=== PATIENT | female | born 1990 | race Caucasian/White ===

== ENCOUNTER 2019-07-16 13:03 | Emergency (ER) | payer OTHER ==
[2019-07-16] MEDS ORDERED: SODIUM CHLORIDE 0.9% 1,000 ML IV ONE ×2 (14:03→14:37)
--- NOTE | 2019-07-16 14:09 | ED Physician Documentation ---
PD HPI NVD - Stated complaint Stated Complaint: NAUSEA,VOMITING,DIZZINESS - Chief complaint Chief Complaint: Abd Pain - History obtained from History obtained from: Patient - History of Present Illness Timing - onset: How many weeks ago (past 2-3 weeks with N/V episodically through the day. More consistent nausea the past week, with vomiting of any PO intake the past 2-3 days. She is at 9 weeks with normal U/S done 3 weeks ago showing single IUP.) Timing - duration: Weeks (for some nausea, soon after discovered .) Timing - details: Gradual onset, Still present Associated symptoms: Abdominal pain (epigastric area with eating attempts and with vomiting.), Loss of appetite, Weight loss. No: Fever, Hematemesis, Melena, Near syncope / syncope (but feeling lightheaded the past couple days.), Dysuria Contributing factors: Recent antibiotics (flagyl the past 6 days for BV diagnosed by [facility] on regular exam.). No: Sick contact, Bad food Improved by: No: Eating, Vomiting Worsened by: Eating. No: Moving Similar symptoms before: Has not had sx before Recently seen: Clinic (seen by [facility] about 1 1/2 weeks ago, and also couple weeks prior to that.) Review of Systems Constitutional: reports: Fatigue, Weight Loss. denies: Fever, Chills, Myalgias Nose: denies: Rhinorrhea / runny nose, Congestion Throat: denies: Sore throat Respiratory: denies: Cough GI: reports: Abdominal Pain, Nausea, Vomiting. denies: Abdominal Swelling, Constipation, Diarrhea : reports: Now EGA (9 wks). denies: Dysuria, Frequency, Vaginal bleeding Neurologic: reports: Generalized weakness, Headache. denies: Focal weakness, Numbness, Altered mental status Endocrine: reports: Weight loss. denies: Polydypsia, Polyphagia Immunocompromised: denies: Immunocompromised PD PAST MEDICAL HISTORY - Past Medical History Past Medical History: No - Present Medications Home Medications: Ambulatory Orders Medication Instructions Recorded Confirmed Cephalexin [Keflex] 500 mg PO TID #15 capsule 07/16/19 Famotidine 20 mg PO DAILY #30 tablet 07/16/19 Ondansetron Odt [Zofran] 4 mg TL Q6H PRN #30 tablet 07/16/19 Pyridoxine HCl (Vitamin B6) 100 mg PO BID #30 tablet 07/16/19 [Vitamin B-6] - Allergies Allergies/Adverse Reactions: Allergies Allergy/AdvReac Type Severity Reaction Status Date / Time No Known Drug Allergies Allergy Verified 07/16/19 14:29 PD ED PE NORMAL - Vitals Vital signs reviewed: Yes - General General: Alert and oriented X 3, Well developed/nourished - HEENT HEENT: Ears normal, Pharynx benign. No: Moist mucous membranes - Neck Neck: Supple, no meningeal sign, No adenopathy - Cardiac Cardiac: No murmur. No: RRR (regular but tachycardic) - Respiratory Respiratory: Clear bilaterally - Abdomen Abdomen: Normal bowel sounds, Soft, Non distended, No organomegaly, Other (some tender epigastric area without guarding nor percussion tender. ) - Back Back: No CVA TTP - Derm Derm: Normal color, Warm and dry - Extremities Extremities: No edema, No calf tenderness / cord - Neuro Neuro: Alert and oriented X 3, No motor deficit, Normal speech Results - Vitals Vitals: Vital Signs - 24 hr 07/16/19 07/16/19 07/16/19 13:18 15:24 16:33 Temperature 36.8 C 36.7 C 37.1 C Heart Rate 109 H 80 96 Respiratory 16 16 16 Rate Blood Pressure 113/70 114/73 114/69 O2 Saturation 98 99 100 Oxygen O2 Source Room air - Labs Labs: Laboratory Tests 07/16/19 07/16/19 07/16/19 14:10 14:10 15:19 Sodium 133 L Potassium 3.3 L Chloride 102 Carbon Dioxide 23 Anion Gap 8.0 BUN 8 Creatinine 0.5 Estimated GFR (MDRD) 149 Glucose 109 H Calcium 8.7 Magnesium 2.0 Total Bilirubin 0.8 AST 16 ALT 12 Alkaline Phosphatase 35 L Total Protein 6.9 Albumin 4.0 Globulin 2.9 Albumin/Globulin Ratio 1.4 Lipase 35 Urine Color YELLOW Urine Clarity HAZY Urine pH 5.5 Ur Specific [place] >=1.030 H Urine Protein NEGATIVE Urine Glucose (UA) NEGATIVE Urine Ketones TRACE Urine Occult Blood NEGATIVE Urine Nitrite POSITIVE H Urine Bilirubin NEGATIVE Urine Urobilinogen 0.2 (NORMAL) Ur Leukocyte Esterase SMALL H Urine RBC 0-5 Urine WBC 6-10 H Ur Squamous Epith Cells MANY Squamous H Urine Crystals 6-10 Calcium Oxalate Urine Bacteria Moderate H Urine Mucus Few Strands Ur Microscopic Review INDICATED Urine Culture Comments NOT INDICATED PD MEDICAL DECISION MAKING - ED course Complexity details: reviewed results (UA could be c/w UTI. She had recent U/S showing single IUP and no acute process. ), re-evaluated patient (improved symptoms with IV fluids and meds. Taking PO juice and crackers. ), considered differential (consider hyperemesis in , also some element of gastritis from vomiting. Had been on flagyl for BV so med side effect. Less likely stomach side effect of vitamins. Also consider UTI, viral GE. ), d/w patient Departure - Departure Disposition: Home, Self Care Clinical Impression: Nausea and vomiting Qualifiers: Vomiting type: unspecified Vomiting Intractability: intractable Qualified Code(s): R11.2 - Nausea with vomiting, unspecified Condition: Stable Record reviewed to determine appropriate education?: Yes Instructions: ED Preg Morning Sickness, ED Nausea Vomiting Follow-Up: Ryan Packer ARNP [Primary Care Provider] - Prescriptions: Cephalexin [Keflex] 500 mg PO TID #15 capsule Famotidine 20 mg PO DAILY #30 tablet Ondansetron Odt [Zofran] 4 mg TL Q6H PRN #30 tablet PRN Reason: Nausea / Vomiting Pyridoxine HCl (Vitamin B6) [Vitamin B-6] 100 mg PO BID #30 tablet Comments: Small frequent fluids. Ondansetron if needed for nausea and vomiting. Famotidine acid reducing medicine daily for the next week or 2 as your stomach would have gotten irritated with all the vomiting and this will allow better healing. Vitamin B6 twice daily reduces the amount of nausea in in general. Hold your vitamin for a couple of days as the iron in it sometimes can be bothersome on the stomach. Resume it when your stomach is feeling much improved. There is suggestive of bladder infection on your urine test so take cephalexin 3 times a day for 5 days. The urine culture should result in 2 to 3 days and help guide the antibiotic choice. We will call if it needs to be changed. Follow-up with your primary care and [facility] over the next several days. Return if worse. Discharge Date/Time: 07/16/19 16:34
[2019-07-16 14:32] LABS: ALBUMIN/GLOBULIN RATIO 1.4 (1.0-2.2); BILIRUBIN,TOTAL 0.8 mg/dL (0.2-1.0); CALCIUM 8.7 mg/dL (8.5-10.3); CREATININE 0.5 mg/dL (0.4-1.0); TOTAL PROTEIN 6.9 g/dL (6.7-8.2)
[2019-07-16] MEDS ORDERED: ONDANSETRON 4 MG/2 ML VIAL IVP STA (14:37)
[2019-07-16] MEDS ORDERED: DEXAMETHASONE 10 MG/ML VIAL IVP STA (14:38)
[2019-07-16] MEDS ORDERED: FAMOTIDINE 20 MG/2 ML VIAL IVP STA (14:38)
[2019-07-16 15:28] LABS: BILIRUBIN,URINE NEGATIVE (NEGATIVE); GLUCOSE, URINE (UA) NEGATIVE (NEGATIVE); KETONES,URINE (UA) TRACE mg/dL (NEGATIVE); LEUKOCYTE ESTERASE, URINE SMALL (NEGATIVE); NITRITE,URINE POSITIVE (NEGATIVE); OCCULT BLOOD,URINE NEGATIVE (NEGATIVE); PH,URINE 5.5 PH (5.0-7.5); PROTEIN,URINE NEGATIVE (NEGATIVE); UROBILINOGEN,URINE 0.2 (NORMAL) E.U./dL (NORMAL)
[2019-07-16 15:30] LABS: CLARITY,URINE HAZY (CLEAR)
[2019-07-16 15:43] LABS: BACTERIA,URINE Moderate /HPF (None Seen); CRYSTALS,URINE 6-10 Calcium Oxalate /LPF; MUCUS,URINE Few Strands; RBC,URINE 0-5 /HPF (0-5); SQUAMOUS EPITHELIAL CELL,UR MANY Squamous (<= Few)
[2019-07-16] MEDS ORDERED: cefTRIAXone 1 GM VIAL IVP STA (15:48)
[2019-07-16 16:34] VITALS: BP 114/69
== END 2019-07-16 16:34 | disposition home or self-care (01) ==
LOC: ED 13:03
DX: O21.0 Mild hyperemesis gravidarum (principal); Z3A.09 9 weeks gestation of pregnancy
CPT/HCPCS: 36415; 80053; 81001; 81003; 83690; 83735; 87086; 96361; 96374; 96375; 99284

== ENCOUNTER 2019-08-27 11:38 | Emergency (ER) | payer OTHER ==
[2019-08-27] MEDS: SODIUM CHLORIDE 0.9% 1,000 ML IV ONE (13:20)
[2019-08-27 13:27] LABS: BILIRUBIN,URINE NEGATIVE (NEGATIVE); GLUCOSE, URINE (UA) NEGATIVE (NEGATIVE); KETONES,URINE (UA) >=80 mg/dL (NEGATIVE); LEUKOCYTE ESTERASE, URINE NEGATIVE (NEGATIVE); NITRITE,URINE NEGATIVE (NEGATIVE); OCCULT BLOOD,URINE NEGATIVE (NEGATIVE); PROTEIN,URINE NEGATIVE (NEGATIVE); UROBILINOGEN,URINE 0.2 (NORMAL) E.U./dL (NORMAL)
[2019-08-27 13:29] LABS: CLARITY,URINE CLEAR (CLEAR)
[2019-08-27 13:44] LABS: KETONES, SERUM (ACETEST) NEGATIVE (NEGATIVE)
[2019-08-27 13:48] LABS: ALBUMIN 4.1 g/dL (3.2-5.5); ALBUMIN/GLOBULIN RATIO 1.4 (1.0-2.2); ALKALINE PHOSPHATASE 38 IU/L (42-121); ALT ALANINE AMINOTRANSFERASE 15 IU/L (10-60); AST ASPARTATE AMINOTRANSFERASE 18 IU/L (10-42); BILIRUBIN,TOTAL 1.4 mg/dL (0.2-1.0); BUN - BLOOD UREA NITROGEN 7 mg/dL (6-20); CALCIUM 8.8 mg/dL (8.5-10.3); CARBON DIOXIDE - CO2 24 mmol/L (21-32); CHLORIDE 99 mmol/L (101-111); CREATININE 0.5 mg/dL (0.4-1.0); GLUCOSE 77 mg/dL (70-100); LIPASE 30 U/L (22-51); SODIUM 134 mmol/L (135-145)
--- NOTE | 2019-08-27 14:04 | ED Physician Documentation ---
PD HPI NVD - Stated complaint Stated Complaint: VOMITING - Chief complaint Chief Complaint: General - History obtained from History obtained from: Patient - History of Present Illness Timing - onset: Yesterday Timing - duration: Days (1) Timing - details: Gradual onset, Still present Associated symptoms: Abdominal pain Contributing factors: Other () Improved by: Vomiting Similar symptoms before: Diagnosis (hyperemesis) Recently seen: Clinic - Additonal information Additional information: 28-year-old female who is approximately 15 weeks has developed nausea and vomiting beginning yesterday that she has not been able to control with the use of the Zofran or doxylamine and pyridoxine.She is come in now with 1 days of uncontrolled vomiting. She feels dehydrated. She is getting her care through [facility]. Review of Systems Constitutional: denies: Fever Eyes: denies: Decreased vision Ears: denies: Ear pain Nose: denies: Rhinorrhea / runny nose, Congestion Throat: denies: Sore throat Cardiac: denies: Chest pain / pressure, Palpitations Respiratory: denies: Dyspnea, Cough GI: reports: Abdominal Pain, Nausea, Vomiting : denies: Dysuria, Frequency Skin: denies: Rash Musculoskeletal: denies: Neck pain, Back pain, Extremity pain Neurologic: denies: Generalized weakness, Focal weakness, Numbness PD PAST MEDICAL HISTORY - Past Medical History Cardiovascular: None Respiratory: None Neuro: None Endocrine/Autoimmune: None GI: None NATIONAL SALES ASSOCIATE: None : None HEENT: None Psych: Depression, Anxiety Musculoskeletal: None Derm: None - Past Surgical History Past Surgical History: Yes General: Appendectomy - Present Medications Home Medications: Ambulatory Orders Medication Instructions Recorded Confirmed Ondansetron Odt [Zofran] 4 mg TL Q6H PRN #30 tablet 07/16/19 08/27/19 Doxylamine Succinate [Unisom] 25 mg PO TID 08/27/19 08/27/19 No122/Iron/Folic Acid 1 each PO DAILY PM 08/27/19 08/27/19 [ Multi Tablet] Pyridoxine HCl (Vitamin B6) 100 mg PO TID 08/27/19 08/27/19 [Vitamin B-6] - Allergies Allergies/Adverse Reactions: Allergies Allergy/AdvReac Type Severity Reaction Status Date / Time No Known Drug Allergies Allergy Verified 07/16/19 14:29 - Social History Does the pt smoke?: No Smoking Status: Never smoker Does the pt drink ETOH?: No Does the pt have substance abuse?: No - Immunizations Immunizations are current?: Yes - POLST Patient has POLST: No PD ED PE NORMAL - Vitals Vital signs reviewed: Yes (tachy ) - General General: Alert and oriented X 3, No acute distress, Well developed/nourished - HEENT HEENT: Atraumatic, PERRL, EOMI - Neck Neck: Supple, no meningeal sign, No bony TTP - Cardiac Cardiac: RRR, No murmur - Respiratory Respiratory: No respiratory distress, Clear bilaterally - Abdomen Abdomen: Normal bowel sounds, Soft, Non tender, Non distended, No organomegaly - Back Back: No CVA TTP, No spinal TTP - Derm Derm: Normal color, Warm and dry, No rash - Extremities Extremities: No deformity, No edema, No calf tenderness / cord - Neuro Neuro: Alert and oriented X 3, central service technician 2-12 intact, No motor deficit, No sensory deficit, Normal speech Eye Opening: Spontaneous Motor: Obeys Commands Verbal: Oriented GCS Score: 15 - Psych Psych: Normal mood, Normal affect Results - Vitals Vitals: Vital Signs - 24 hr 08/27/19 08/27/19 12:02 12:29 Temperature 37 C 36.9 C Heart Rate 112 H 104 H Respiratory 20 20 Rate Blood Pressure 111/70 101/61 O2 Saturation 98 99 Oxygen O2 Source Room air - Labs Labs: Laboratory Tests 08/27/19 08/27/19 13:05 13:15 Sodium 134 L Potassium 3.7 Chloride 99 L Carbon Dioxide 24 Anion Gap 11.0 BUN 7 Creatinine 0.5 Estimated GFR (MDRD) 149 Glucose 77 Calcium 8.8 Total Bilirubin 1.4 H AST 18 ALT 15 Alkaline Phosphatase 38 L Total Protein 7.0 Albumin 4.1 Globulin 2.9 Albumin/Globulin Ratio 1.4 Lipase 30 Urine Color YELLOW Urine Clarity CLEAR Urine pH 7.0 Ur Specific [place] 1.020 Urine Protein NEGATIVE Urine Glucose (UA) NEGATIVE Urine Ketones >=80 H Urine Occult Blood NEGATIVE Urine Nitrite NEGATIVE Urine Bilirubin NEGATIVE Urine Urobilinogen 0.2 (NORMAL) Ur Leukocyte Esterase NEGATIVE Ur Microscopic Review NOT INDICATED Urine Culture Comments NOT INDICATED Serum Ketones NEGATIVE Procedures - Bedside sono Bedside sono by EMP: With the use of bedside ultrasound the fetus is imaged and it is moving about, has a heart rate of 156 and a biparietal diameter indicating a gestational age of 14 weeks 6 days. - IVC sono (time) 1350 Bedside IVC sono: IVC measures (cm) (1.8), Euvolemia (after 1 liter is in) PD MEDICAL DECISION MAKING - ED course Complexity details: reviewed old records, reviewed results, re-evaluated patient, considered differential, d/w patient ED course: 28-year-old female who has had some problems with hyperemesis has developed some vomiting today and she did not get relief with the use of the Ticlid just for the Zofran. She is hydrated here in the emergency department and has improvement in all of her symptoms. Departure - Departure Disposition: 01 Home, Self Care Clinical Impression: Nausea and vomiting Qualifiers: Vomiting type: unspecified Vomiting Intractability: non-intractable Qualified Code(s): R11.2 - Nausea with vomiting, unspecified Condition: Stable Instructions: ED Preg Morning Sickness Follow-Up: Ryan Packer ARNP [Primary Care Provider] -
[2019-08-27 14:22] VITALS: BP 114/70
== END 2019-08-27 14:30 | disposition home or self-care (01) ==
LOC: ED 11:38
DX: O21.9 Vomiting of pregnancy, unspecified (principal); Z3A.15 15 weeks gestation of pregnancy
CPT/HCPCS: 36415; 80053; 81001; 81003; 82009; 83690; 87086; 96360; 99284

== ENCOUNTER 2019-11-01 18:48 | Outpatient (CLI) | payer OTHER ==
[2019-11-01 19:18] VITALS: BP 111/77
[2019-11-01 20:40] LABS: BILIRUBIN,URINE NEGATIVE (NEGATIVE); CLARITY,URINE CLEAR (CLEAR); GLUCOSE, URINE (UA) NEGATIVE (NEGATIVE); KETONES,URINE (UA) NEGATIVE (NEGATIVE); LEUKOCYTE ESTERASE, URINE NEGATIVE (NEGATIVE); NITRITE,URINE NEGATIVE (NEGATIVE); OCCULT BLOOD,URINE NEGATIVE (NEGATIVE); PH,URINE 6.5 PH (5.0-7.5); PROTEIN,URINE NEGATIVE (NEGATIVE); UROBILINOGEN,URINE 0.2 (NORMAL) E.U./dL (NORMAL)
--- NOTE | 2019-11-01 20:57 | HISTORY & PHYSICAL EXAMINATION ---
DATE OF SERVICE: 11/01/2019 Physician: Truman Prater MD IDENTIFICATION: A 29-year-old, G1, P0 female, EDC 19 February, making her 24 weeks. This is done his torical from patient, as patient's OB records are not available and are currently at [facility]. CHIEF COMPLAINT 1. Decreased motion. 2. Contractions. HISTORY OF PRESENT ILLNESS: Patient called the clinic yesterday, at which time she was noted to have decreased motion. She states she has not noted any activity over the last 2 days. She was told to push fluids, increase carbohydrates and to monitor her contractions. She has not noted a ny contractions since then. She has also noted some mild contractions at this particular time. This has been complicated with severe hyperemesis gravidum with a 25-pound weight loss. She re lates that her blood type is B positive. She also notes that her STI check was negative. She has al so had screening for chromosomal abnormalities, as well as cystic fibrosis both of which she recalls as being negative. PAST MEDICAL HISTORY: Patient denies any hypertensive, diabetic, cardiac or pulmonary disease. PAST SURGICAL HISTORY: Positive for an appendectomy as well as a hymenectomy. ALLERGIES: NONE KNOWN. CURRENT MEDICATIONS: vitamins. HABITS: Patient denies use of alcohol, tobacco, street or addictive drugs or cannabinoids. 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 She is to an active duty [employer]. FAMILY HISTORY: Unremarkable. REVIEW OF SYSTEMS: Negative at this time. She states her hyperemesis is mostly resolved. PHYSICAL EXAMINATION VITAL SIGNS: Blood pressure 111/77, pulse 105, temperature 36.8. HEENT: Pupils are equal, round. Extraocular muscles are intact. Mask is over her mouth. Thyroid i s not palpably enlarged. HEART: Regular rate and rhythm without murmurs. LUNGS: Lung monsalve are clear without rales or wheezes. BACK: No spinal or CVA tenderness noted. ABDOMEN: Uterus measured 25 cm in fundal height. It was nontender. We were able to auscultate feta l heart tones, as well as hear what appears to be motion. PELVIC: Speculum examination revealed a cervix with minimal vaginal discharge. Cultures for bacteri al vaginosis as well as an FFN were taken. Wet mount was also obtained. IMPRESSION: 1. A 29-year-old primigravida at 24 weeks. 2. Decreased motion. 3. New onset contractions. PLAN: Patient's contractions are sporadic and nonpainful at this particular time, they are running a bout 7-8 minutes apart. We will obtain ultrasound, checking cervical length. FFN has been obtained. She has not had any intercourse or any vaginal penetration for the last week. We will also send in for a bacterial vaginosis as well as clue cells and hyphae. Patient has been instructed she is not to return to work until Tuesday until she has clearance from the doctors at [facility] TD: 11/01/2019 20:46
[2019-11-01 20:59] LABS: RBC,URINE None Seen /HPF (0-5)
[2019-11-01 21:00] LABS: BACTERIA,URINE None Seen /HPF (None Seen); SQUAMOUS EPITHELIAL CELL,UR MOD Squamous (<= Few)
[2019-11-02 06:17] LABS: CANDIDA GROUP DNA UNRESOLVED (NEGATIVE); CANDIDA KRUSEI DNA UNRESOLVED (NEGATIVE); TRICHOMONAS VAGINALIS DNA UNRESOLVED (NEGATIVE)
--- NOTE | 2019-11-02 15:48 | Ultrasound Report ---
PROCEDURE: 4.8 INDICATIONS: Non movement x 24hrs, uterine contractions OUTSIDE/PRIOR DATING DATA: Last menstrual period (LMP): 05/15/2019. LMP-based estimated date of delivery (CELSA): 02/20/2020. First dating scan (date and location): 11/01/2019. Estimated date of delivery (CELSA) from first dating scan: 02/20/2020. TECHNIQUE: Real-time scanning was performed of the fetus, with image documentation and biometric bryan surements. Biophysical profile was also obtained. COMPARISON: None. FINDINGS: General: A single living intrauterine gestation is present. Presentation: Vertex Placenta: Placental position is posterior, without previa. Amniotic fluid index: 18.7 cm, 82nd percentile for gestational age. Largest pocket 5.7 cm heart rate: 144 beats per minute. Maternal cervical canal: 40 cm long; normal length is 2.5 cm or more. biometrics: Not obtained. Biophysical profile: Tone: 2 points. Movement: 2 points. Respiration: 2 points. Largest pocket of fluid: 2 points. Umbilical artery Doppler: 4.8, 4.8, 2.8 IMPRESSION: 1. Single live intrauterine . Prior dating data is noted to been obtained from the patient a s prior records were not available at time of emergency room visit. They have been requested and adde ndum will be issued as they are received for verification. 2. BPP 8 out of 8. Reviewed by: Karolyn Lyons MD on 11/02/2019 3:47 PM PDT Approved by: Karolyn Lyons MD on 11/02/2019 3:47 PM PDT Station ID: [id number]
== END 2019-11-01 21:50 | disposition home or self-care (01) ==
LOC: WFO 18:48 → FBP 18:52 → WFO 21:50
PROVIDERS: ATTEND Obstetrics & Gynecology
DX: O36.8120 Decreased fetal movements, second trimester, not applicable or unspecified (principal); O60.02 Preterm labor without delivery, second trimester; Z3A.24 24 weeks gestation of pregnancy
CPT/HCPCS: 76819; 81001; 82731; 87086; 87210; 87661; 87801; 99214

== ENCOUNTER 2019-12-31 17:01 | Outpatient (CLI) | payer OTHER ==
--- NOTE | 2019-12-31 18:53 | Ultrasound Report ---
PROCEDURE: OB Limited INDICATIONS: Fall with impact to the abd. Check for abruption OUTSIDE/PRIOR DATING DATA: Last menstrual period (LMP): 05/15/2019. LMP-based estimated date of delivery (CELSA): 02/20/2020. First dating scan (date and location): Unknown. Prior scan at [facility]. Estimated date of delivery (CELSA) from first dating scan: 02/20/2020. TECHNIQUE: Real-time scanning was performed of the fetus, with image documentation. Endovaginal scanning: Not performed. COMPARISON: OB ultrasound 11/01/2019. FINDINGS: A single living intrauterine gestation is present. Presentation: Vertex Placenta: Placental position is posterior, without previa. No placental abruption. Amniotic fluid index: 15.2 cm, normal for gestational age. Largest pocket 6.2 cm. heart rate: 144 beats per minutes. Maternal cervical canal: 4.7 cm long; normal length is 2.5 cm or more. No funneling. Estimated gestational age from prior scan: 32 weeks 5 days. Breathing motion is seen. Right ovary is unremarkable. Left ovary is not identified. IMPRESSION: 1. Oleary living intrauterine at 32 weeks 5 days based on prior ultrasound. Fetus is in the vertex position. 2. Normal placenta and amniotic fluid. No findings identified to suggest placental abruption. 3. heart rate 144 BPM. Breathing motion is seen. Reviewed by: Fareed Sosa MD on 12/31/2019 6:52 PM PDT Approved by: Fareed Sosa MD on 12/31/2019 6:52 PM PDT Station ID: [id number]
--- NOTE | 2019-12-31 19:29 | HISTORY & PHYSICAL EXAMINATION ---
DATE OF SERVICE: 12/31/2019 Physician: Truman Prater MD IDENTIFICATION: Patient is a 29-year-old, G1, P0 female. Her EDC is February, making her 32.71 w eeks. CHIEF COMPLAINT: Fall. HISTORY OF PRESENT ILLNESS: Patient states she was going up the stairs at about 4 o'clock today at w hich time she tripped and landed on her stomach. She denies any bleeding. She denied passing out. She states the baby has been moving well since then. She was checked for blood type she is B positiv e. OBSTETRICAL HISTORY: She started her OB care at [facility] early in her and she relates that her course has been unremarkable. Her STI checks have been negative. She is B positive. Her 50 gram Glucola was 132. PAST MEDICAL HISTORY: Patient denies any hypertensive, diabetic, cardiac or pulmonary history. PAST SURGICAL HISTORY: Hymenectomy, open appendectomy with rupture, as well as wisdom teeth. ALLERGIES: NONE KNOWN. CURRENT MEDICATIONS: vitamins. HABITS: Patient denies use of alcohol, tobacco, street or addictive drugs or marijuana. SOCIAL HISTORY: Patient is and lives with active duty [employer] spouse. He is currently deployed . She works for the [employer] at this time. FAMILY HISTORY: Positive for mother with ovarian cancer, DVT. Father, coronary artery disease. Her mother also had gestational diabetes. PHYSICAL EXAMINATION GENERAL: Patient is well-developed, well-nourished white female. She is in no acute distress at thi s time. HEENT: Pupils equal, round. Extraocular muscles are intact. CARDIOVASCULAR: Regular rate and rhythm without murmurs. LUNGS: Lung monsalve are clear without rales or wheezes. ABDOMEN: Soft, nontender. There is some mild tenderness in the right upper quadrant over the gallbl adder. Upon reviewing the ultrasound with the laser beam cutter she received 8/8 for BPP. She also w as noted to have a placenta, which is posterior. The DEVEN was 15. There are no other anomalies or ev idence of any abruption at this time. The cervix is long and closed. IMPRESSION 1. A 29-year-old primigravida at 32 weeks EGA. 2. Fall on the abdomen with posterior placenta. PLAN: No evidence of any disease. The patient is Rh positive. We will monitor for 12 hours, at [facility] time if everything is reassuring, we will allow the patient to go home. TD: 12/31/2019 18:47
[2019-12-31 21:35] VITALS: BP 110/78
== END 2019-12-31 21:10 | disposition home or self-care (01) ==
LOC: WFO 17:01 → FBP 17:03 → WFO 21:10
PROVIDERS: ATTEND Obstetrics & Gynecology
DX: Z04.3 Encounter for examination and observation following other accident (principal); Z3A.32 32 weeks gestation of pregnancy
CPT/HCPCS: 76815; 99213

== ENCOUNTER 2020-01-16 12:18 | Outpatient (CLI) | payer OTHER ==
[2020-01-16 13:14] LABS: ALBUMIN 3.3 g/dL (3.2-5.5); ALBUMIN/GLOBULIN RATIO 1.1 (1.0-2.2); BILIRUBIN,TOTAL 0.7 mg/dL (0.2-1.0); CALCIUM 8.2 mg/dL (8.5-10.3); CREATININE 0.4 mg/dL (0.4-1.0); TOTAL PROTEIN 6.3 g/dL (6.7-8.2)
== END 2020-01-16 12:19 | disposition home or self-care (01) ==
LOC: LAB 12:18
PROVIDERS: ATTEND Advanced Practice Midwife
DX: L29.9 Pruritus, unspecified (principal)
CPT/HCPCS: 36415; 80053

== ENCOUNTER 2020-01-17 07:31 | Outpatient (CLI) | payer OTHER | END 2020-01-17 07:32 | disposition home or self-care (01) | LOC: LAB 07:31 | PROVIDERS: ATTEND Advanced Practice Midwife | DX: L29.9 Pruritus, unspecified (principal) | CPT/HCPCS: 36415; 82239 ==

== ENCOUNTER 2020-01-23 07:00 | Outpatient (CLI) | payer OTHER | END 2020-01-23 23:59 | disposition home or self-care (01) | LOC: LAB.R 07:00 | PROVIDERS: ATTEND Nurse Practitioner Obstetrics & Gynecology | DX: Z36.85 Encounter for antenatal screening for Streptococcus B (principal) | CPT/HCPCS: 87797 ==

== ENCOUNTER 2020-02-01 13:36 | Outpatient (CLI) | payer OTHER ==
--- NOTE | 2020-02-01 16:45 | Ultrasound Report ---
PROCEDURE: OB F/U or Repeat INDICATIONS: UTERINE SIZE DISCREPANCY, 3RD TRIMESTER OUTSIDE/PRIOR DATING DATA: Last menstrual period (LMP): 05/15/2019. LMP-based estimated date of delivery (CELSA): 02/20/2020. First dating scan (date and location): Reported prior scan at [facility]. Estimated date of delivery (CELSA) from first dating scan: 02/20/2020. TECHNIQUE: Real-time scanning was performed of the fetus, with image documentation and biometric measurements. Endovaginal scanning: Not performed COMPARISON: Ultrasound dated 11/01/2019 and 12/31/2019. FINDINGS: General: A single living intrauterine gestation is present. Presentation: Vertex Placenta: Placental position is posterior, without previa. Amniotic fluid index: 12.9 cm, 44th percentile for gestational age. Largest pocket 6.9 cm. heart rate: 139 beats per minute. Maternal cervical canal: 4.5 cm long; normal length is 2.5 cm or more. biometrics: Biparietal diameter: 8.8 cm, 35 weeks 5 days Head circumference: 32.6 cm, 37 weeks 0 days Abdominal circumference: 30.9 cm, 34 weeks 6 days Femur length: 6.6 and a minute, 34 weeks 2 days Estimated gestational age from initial scan: 37 weeks 2 days. Composite gestational age from present scan: 35 weeks 3 days Estimated weight and percentile: 2563 g, 9th percentile Measurement variability in biometric dating: +/- 10 days from 12-20 weeks gestation, +/- 2 weeks from 20-30 weeks gestation, +/- 3 weeks at 30 weeks gestation or more. Other: Umbilical artery SD ratios measure 2.5, 2.3, 2.9, within normal limits. IMPRESSION: Single living intrauterine fetus in vertex presentation. Estimated weight 2563 g, at the 9th percentile. Normal DEVEN and cord Doppler examination. Reviewed by: Reji Jones MD on 02/01/2020 4:44 PM PDT Approved by: Reji Jones MD on 02/01/2020 4:44 PM PDT Station ID: [id number]
== END 2020-02-01 13:37 | disposition home or self-care (01) ==
LOC: DI 13:36
PROVIDERS: ATTEND Nurse Practitioner Obstetrics & Gynecology
DX: O26.843 Uterine size-date discrepancy, third trimester (principal); Z3A.35 35 weeks gestation of pregnancy
CPT/HCPCS: 76816

== ENCOUNTER 2020-02-07 09:10 | Outpatient (CLI) | payer OTHER ==
--- NOTE | 2020-02-07 11:20 | Ultrasound Report ---
PROCEDURE: OB Biophysical Profile INDICATIONS: IUGR OUTSIDE/PRIOR DATING DATA: Last menstrual period (LMP): 05/25/2019. LMP-based estimated date of delivery (CELSA): 02/20/2020. First dating scan (date and location): 10/02/2019. Estimated date of delivery (CELSA) from first dating scan: 02/20/2020. TECHNIQUE: Real-time scanning was performed of the fetus, with image documentation and biometric bryan surements. Biophysical profile was also obtained. COMPARISON: OB ultrasound , , 12/31/2019, 02/01/2020 FINDINGS: General: A single living intrauterine gestation is present. Presentation: Vertex spine lateral Placenta: Placental position is posterior, without previa. Amniotic fluid index: 12.9 cm, 44th percentile for gestational age. Largest pocket 6.9 cm heart rate: 139 beats per minute. Maternal cervical canal: 4.5 cm long; normal length is 2.5 cm or more. biometrics: Biparietal diameter: 8.8 cm 35 weeks 5 days Head circumference: 32.6 cm 37 weeks 0 days Abdominal circumference: 30.9 cm 34 weeks 6 days Femur length: 6.6 cm 34 weeks 2 days Estimated gestational age from initial scan: 37 weeks 2 days Composite gestational age from present scan: 35 weeks 3 days Estimated weight and percentile: 25 63 g, 9th percentile Measurement variability in biometric dating: +/- 10 days from 12-20 weeks gestation, +/- 2 weeks from 20-30 weeks gestation, +/- 3 weeks at 30 weeks gestation or later. Umbilical artery systolic to diastolic ratio: 2.5, 2.3, 2.9 IMPRESSION: 1. Single live intrauterine with ultrasound gestational age today 35 weeks 3 days compared to 37 weeks 2 days from initial ultrasound. Ultrasound CELSA is unchanged at 02/20/2020. 2. weight remains at the 9th percentile. Reviewed by: Karolyn Lyons MD on 02/07/2020 11:19 AM PDT Approved by: Karolyn Lyons MD on 02/07/2020 11:19 AM PDT Station ID: [id number]
[2020-02-07 13:25] VITALS: BP 105/77
--- NOTE | 2020-02-07 15:31 | PROCEDURE REPORT ---
- HPI Diagnosis/Indication for NST: Intrauterine growth restriction Current EDU 02/20/20 Gestation 38 Weeks and 1 Days 1 Para 0 Vital Signs Temperature 36.8 C 02/07/20 10:15 Heart Rate 99 02/07/20 10:15 Respiratory Rate 18 02/07/20 10:15 Blood Pressure 105/77 02/07/20 10:15 Temperature 36.8 C 02/07/20 10:15 Heart Rate 99 02/07/20 10:15 Respiratory Rate 18 02/07/20 10:15 Blood Pressure 105/77 02/07/20 10:15 O2 Saturation - NST Procedure NST Procedure Start Date 02/07/20 Start Time 09:22 Stop Time 10:06 Patient States Movement Yes - Results and Plan Plan: NST performed: 02/07/2020 NST read: 02/07/2020 Indication: IUGR (low weight) 29yo at 38.1wks gestation Impression: Reactive NST BPP 8/8 EFW remains 9%; DEVEN 17.2 (wnl) cord dopplers wnl Plan: continue with biweekly NST w/BPP Discharge Diagnosis: IUGR requiring continued monitoring
== END 2020-02-07 11:05 | disposition home or self-care (01) ==
LOC: WFO 09:10 → FBP 09:12 → WFO 11:05
PROVIDERS: ATTEND Advanced Practice Midwife
DX: O36.5930 Maternal care for other known or suspected poor fetal growth, third trimester, not applicable or unspecified (principal); Z3A.38 38 weeks gestation of pregnancy
CPT/HCPCS: 59025; 76819; 99212

== ENCOUNTER 2020-02-07 18:12 | Outpatient (CLI) | payer OTHER ==
[2020-02-07 19:04] VITALS: BP 116/82
[2020-02-07 19:49] LABS: BILIRUBIN,URINE NEGATIVE (NEGATIVE); GLUCOSE, URINE (UA) NEGATIVE (NEGATIVE); KETONES,URINE (UA) NEGATIVE (NEGATIVE); LEUKOCYTE ESTERASE, URINE TRACE (NEGATIVE); NITRITE,URINE NEGATIVE (NEGATIVE); OCCULT BLOOD,URINE NEGATIVE (NEGATIVE); PROTEIN,URINE NEGATIVE (NEGATIVE); UROBILINOGEN,URINE 1 (NORMAL) E.U./dL (NORMAL)
[2020-02-07 20:05] LABS: BACTERIA,URINE Few /HPF (None Seen); CLARITY,URINE HAZY (CLEAR); RBC,URINE 0-5 /HPF (0-5); SQUAMOUS EPITHELIAL CELL,UR MANY Squamous (<= Few)
== END 2020-02-07 20:45 | disposition home or self-care (01) ==
LOC: WFO 18:12 → FBP 18:15 → WFO 20:45
PROVIDERS: ATTEND Advanced Practice Midwife
DX: O36.5930 Maternal care for other known or suspected poor fetal growth, third trimester, not applicable or unspecified (principal); Z3A.38 38 weeks gestation of pregnancy
CPT/HCPCS: 59025; 76819; 81001; 87086; 99212; 99213

== ENCOUNTER 2020-02-11 08:46 | Outpatient (CLI) | payer OTHER ==
[2020-02-11 09:02] VITALS: BP 116/75
--- NOTE | 2020-02-12 09:58 | PROCEDURE REPORT ---
- HPI Diagnosis/Indication for NST: Intrauterine growth restriction Current EDU 02/21/20 Gestation 38 Weeks and 4 Days 1 Para 0 Vital Signs Temperature 98.1 F 02/11/20 08:59 Heart Rate 100 02/11/20 08:59 Respiratory Rate 18 02/11/20 08:59 Blood Pressure 116/75 02/11/20 08:59 Temperature 98.1 F 02/11/20 08:59 Heart Rate 100 02/11/20 08:59 Respiratory Rate 18 02/11/20 08:59 Blood Pressure 116/75 02/11/20 08:59 O2 Saturation - NST Procedure NST Procedure Start Date 02/11/20 Start Time 08:56 Stop Time 09:19 Patient States Movement Yes - Results and Plan Findings/Impression: Category 1 NST One contraction in 20min Continue surveillance
== END 2020-02-11 09:23 | disposition home or self-care (01) ==
LOC: WFO 08:46 → FBP 08:55 → WFO 09:23
PROVIDERS: ATTEND Obstetrics & Gynecology
DX: O36.5930 Maternal care for other known or suspected poor fetal growth, third trimester, not applicable or unspecified (principal); Z3A.38 38 weeks gestation of pregnancy
CPT/HCPCS: 59025

== ENCOUNTER 2020-02-15 08:10 | Outpatient (CLI) | payer OTHER | END 2020-02-15 23:59 | disposition home or self-care (01) | LOC: COV 08:10 | PROVIDERS: ATTEND Family Medicine | DX: Z20.828 Contact with and (suspected) exposure to other viral communicable diseases (principal) ==

== ENCOUNTER 2020-02-16 14:52 | Outpatient (CLI) | payer OTHER ==
[2020-02-16 15:23] VITALS: BP 130/83
--- NOTE | 2020-02-16 17:06 | Ultrasound Report ---
PROCEDURE: OB F/U or Repeat INDICATIONS: IUGR OUTSIDE/PRIOR DATING DATA: Last menstrual period (LMP): 05/15/2019. LMP-based estimated date of delivery (CELSA): 02/20/2020. First dating scan (date and location): 11/01/2019. Estimated date of delivery (CELSA) from first dating scan: 02/20/2020 are not by outside imaging. TECHNIQUE: Real-time scanning was performed of the fetus, with image documentation and biometric measurements. Endovaginal scanning: Was not performed COMPARISON: 02/07/2020 FINDINGS: General: A single living intrauterine gestation is present. Presentation: Vertex Placenta: Placental position is posterior, without previa. Amniotic fluid index: 14.8 cm, 65th percentile for gestational age. heart rate: 140 beats per minute. Maternal cervical canal: Not well seen secondary to advanced gestational age. biometrics: Biparietal diameter: 9.2 cm, correlating with 37 weeks and 2 days Head circumference: 33.8 cm, correlating with 38 weeks and 5 days Abdominal circumference: 34.5 cm, correlating with 38 weeks and 2 days Femur length: 7.1 cm, correlating with 36 weeks and 3 days Estimated gestational age from initial scan: not applicable. Composite gestational age from present scan: 37 weeks and 2 days Estimated weight and percentile: 3321 g which [address] the fetus within the 33rd percentile based off gestational age. Measurement variability in biometric dating: +/- 10 days from 12-20 weeks gestation, +/- 2 weeks from 20-30 weeks gestation, +/- 3 weeks at 30 weeks gestation or more. Other: Not applicable. IMPRESSION: Single living intrauterine gestation with an estimated sonographic gestational age of ap proximately 37 weeks and 2 days. Expected interval growth has occurred. Estimated weight of approximately 3321 g which places the fetus within the 33rd percentile for gestational age. Biophysical profile was evaluated as a separate report. Reviewed by: Martin Bruno MD on 02/16/2020 5:05 PM PDT Approved by: Martin Bruno MD on 02/16/2020 5:05 PM PDT Station ID: [id number]
--- NOTE | 2020-02-16 17:10 | Ultrasound Report ---
PROCEDURE: OB Biophysical Profile INDICATIONS: IUGR TECHNIQUE: Real-time scanning was performed of the fetus, with image documentation and biometric bryan surements. Biophysical profile was also obtained. Endovaginal scanning: COMPARISON: 02/07/2020 FINDINGS: General: A single living intrauterine gestation is present. Presentation: Vertex Placenta: Placental position is posterior, without previa. Amniotic fluid index: 14.8 cm cm, 65th percentile for gestational age. heart rate: 140 beats per minute. Maternal cervical canal: Not well visualized secondary to advanced gestational age. Biophysical profile: Tone: 2 points. Movement: 2 points. Respiration: 2 points. Largest pocket of fluid: 2 points. (6.0 cm) Umbilical artery Doppler: Normal S/D ratios measured at the cord insertion, mid cord, and placental insertion . Normal cord Doppler waveforms. IMPRESSION: Single living intrauterine gestation. Normal biophysical profile score of 8 out of 8 with normal cord Doppler evaluation. biometrics were evaluated as a separate report from same day. Reviewed by: Martin Bruno MD on 02/16/2020 5:09 PM PDT Approved by: Martin Bruno MD on 02/16/2020 5:09 PM PDT Station ID: [id number]
--- NOTE | 2020-02-17 07:56 | PROCEDURE REPORT ---
- HPI Diagnosis/Indication for NST: Intrauterine growth restriction Current EDU 02/20/20 Gestation 39 Weeks and 3 Days 1 Para 0 Vital Signs Temperature 36.2 C L 02/16/20 15:21 Heart Rate 85 02/16/20 15:21 Respiratory Rate 18 02/16/20 15:21 Blood Pressure 130/83 H 02/16/20 15:21 O2 Saturation 100 02/16/20 15:21 Temperature 36.2 C L 02/16/20 15:21 Heart Rate 85 02/16/20 15:21 Respiratory Rate 18 02/16/20 15:21 Blood Pressure 130/83 H 02/16/20 15:21 O2 Saturation 100 02/16/20 15:21 - NST Procedure NST Procedure Start Date 02/16/20 Start Time 15:04 Stop Time 15:30 Vibroacoustic Stimulation Used No Patient States Movement Yes - Results and Plan Plan: Marga presents to [facility] for scheduled NST, DEVEN, and growth ultrasound secondary to suspected IUGR which was diagnosed 02/01/2020 by ultrasound measuring EFW in 9th percentile. She denies vaginal bleeding or leakage of fluid. She denies contractions. Reports +FM. NST: Reactive NST performed 02/16/2020 NST read 02/17/2020 Baseline 145, moderate variability, + accels, no decels BPP 12/14 Growth: EFW 3321g - 33%tile DIAGNOSIS: IUGR
== END 2020-02-16 16:40 | disposition home or self-care (01) ==
LOC: WFO 14:52 → FBP 14:54 → WFO 16:40
PROVIDERS: ATTEND Nurse Practitioner Obstetrics & Gynecology
DX: O36.5930 Maternal care for other known or suspected poor fetal growth, third trimester, not applicable or unspecified (principal); Z3A.39 39 weeks gestation of pregnancy
CPT/HCPCS: 59025; 76816; 76819

== ENCOUNTER 2020-02-18 09:00 | Outpatient (CLI) | payer OTHER ==
--- NOTE | 2020-02-19 08:51 | PROCEDURE REPORT ---
- HPI Diagnosis/Indication for NST: Gestational Diabetes Current EDU 02/20/20 Gestation 39 Weeks and 5 Days 1 Para 0 - NST Procedure NST Procedure Start Date 02/18/20 Start Time 09:18 Stop Time 09:45 Vibroacoustic Stimulation Used No Patient States Movement Yes - Results and Plan Findings/Impression: NST performed: 02/18/2020 NST read: 02/18/2020 Marga presents to [facility] for scheduled NST, DEVEN, and growth ultrasound secondary to suspected IUGR which was diagnosed 02/01/2020 by ultrasound measuring EFW in 9th percentile. She denies vaginal bleeding or leakage of fluid. She denies contractions. Reports +FM. NST: Reactive NST performed 02/16/2020 NST read 02/17/2020 Baseline 135, moderate variability, + accels, no decels Last Growth: EFW 3321g - 33%tile DIAGNOSIS: IUGR
== END 2020-02-18 10:00 | disposition home or self-care (01) ==
LOC: WFO 09:00 → FBP 09:10 → WFO 10:00
PROVIDERS: ATTEND Advanced Practice Midwife
DX: O24.419 Gestational diabetes mellitus in pregnancy, unspecified control (principal); O36.5930 Maternal care for other known or suspected poor fetal growth, third trimester, not applicable or unspecified; Z3A.39 39 weeks gestation of pregnancy
CPT/HCPCS: 59025

== ENCOUNTER 2020-02-21 06:12 | Inpatient (IN) | payer OTHER ==
[2020-02-21] MEDS ORDERED: SODIUM CHLORIDE FLUSH 0.9% 10 ML SYRINGE IVP PRN (07:42)
[2020-02-21] MEDS ORDERED: miSOPROStoL 200 MCG TABLET BC PRN (07:42)
[2020-02-21] MEDS ORDERED: TRANEXAMIC ACID 1,000 MG in SODIUM CHLORIDE 0.9% 100ML 100 ML IV PRN (07:42)
[2020-02-21] MEDS ORDERED: OXYTOCIN 10 UNIT/ML VIAL IM PRN (07:42)
[2020-02-21] MEDS ORDERED: AMPICILLIN 2 GM in SODIUM CHLORIDE 0.9% MINIBAG 100 ML IV ONE (07:42)
[2020-02-21] MEDS ORDERED: METHYLERGONOVINE 0.2 MG/ML VIAL IM PRN (07:42)
[2020-02-21] MEDS ORDERED: LIDOCAINE-MPF 1% 30 ML VIAL ID PRN (07:42)
[2020-02-21] MEDS ORDERED: fentaNYL 100 MCG/2 ML VIAL IVP PRN (07:42)
[2020-02-21] MEDS ORDERED: ONDANSETRON 4 MG/2 ML VIAL IVP PRN ×2 (07:42→09:06)
[2020-02-21] MEDS ORDERED: OXYTOCIN/SODIUM CHLORIDE 500 ML IV PRN (07:42)
[2020-02-21] MEDS ORDERED: CARBOPROST TROMETHAMINE 250 MCG/ML AMP IM PRN (07:42)
--- NOTE | 2020-02-21 07:44 | HISTORY & PHYSICAL EXAMINATION ---
Admit History - Visit Reason Visit Reason: Contractions - : 1 Parity: 0 Premature: 0 Ectopic: 0 : 0 Care: positive: [facility] (transfer at 34.2wks), Other ([facility]) Risk/History: positive: None Complications This : positive: Other (IUGR 9%tile Known Covid exposure) Smoking Status: Never smoker - Mother's Labs Mother's Blood Type: positive: B Mother's RH: positive: Positive GBS: positive: Group B Strep Positive Rubella Status: positive: Immune - Other Maternal History Other Maternal History: -29yo at 40.1wks gestation who presents to Labor and Delivery for complaints of contractions which started around 0230. She rates them at a 11/15. -Reports movement -Denies ctx/VB/LOF - care with [facility] after transfer of care at 34.2wks from [facility]- adequate care - Complications *IUGR- 9%tile, reassuring NST/BPP and follow up growth of 33%tile *GBS positive-IPAP required *Known COVID exposure- tested positive Feb 10. Have been isolating from each other. Negative swab on Feb 11. Asymptomatic. has been asymptomatic since 02/15. -Dating Criteria *7.1wk US c/w LMP -OB Hx *G1:current -Medications * vitamin-daily *Sertraline 50mg PO daily -Allergies *NKDA -Medical/Surgical History * Saptate hymenectomy (2014) * open appendectomy, ruptured (2011) *wisdom teeth (2011) -Family History *Mother-ovarian cancer *Family history BRCA gene mutation -Social History *Non contributory - Labs, Immunizations, and Findings *Initial U/S: @ 7.1wks c/w LMP dating B pos/Rubella immune Genetic testing: Serum integrated screen negative; CF neg FAS: 10/02/2019 WNL. 3VC. Posterior placenta, no previa. size c/w dating. GROWTH: 02/01/2020 efw 9% Glucola 132 TDAP 11/22/2019 FLU: 02/07/2020 GBS POSITIVE- Ipap in labor HSV: denies Breast pump Rx: previous provided-has MOD: Anticipate ; expecting boy (name undecided); may deploy prior to delivery pp contraception: Nexplanon pap: needs pap -SVE *Per nursing : /0/vertex/bulging bag -FHTs as charted -Assessment *29yo at 40.1wks gestation in early active labor *Uterine activity- adequate * Heart Tones- Category I -Plan *Admit to L&D *Monitoring- Continuous *Ampicillin for GBS prophylaxis- start now *Presume COVID positive- obtain swab- use precautions per protocol. Consult with Peds for management of . *Comfort measures available- position changes, whirlpool tub, fentanyl, and epidural per maternal preference *Diet/Activity- per maternal preference *Anticipate Meds/Allgy - Home Medications Home Medications: Ambulatory Orders Medication Instructions Recorded Confirmed Ondansetron Odt [Zofran] 4 mg TL Q6H PRN #30 tablet 07/16/19 08/27/19 Doxylamine Succinate [Unisom] 25 mg PO TID 08/27/19 08/27/19 No122/Iron/Folic Acid 1 each PO DAILY PM 08/27/19 08/27/19 [ Multi Tablet] Pyridoxine HCl (Vitamin B6) 100 mg PO TID 08/27/19 08/27/19 [Vitamin B-6] - Allergies Allergies/Adverse Reactions: Allergies Allergy/AdvReac Type Severity Reaction Status Date / Time No Known Drug Allergies Allergy Verified 07/16/19 14:29 Review of Systems - All Other Systems All Other Systems: reports: Reviewed and negative - Other Findings Other Findings: Reports uterine contractions with pain 11/15 Physical - Abdominal Exam Vital Signs: Temp Pulse Resp BP Pulse Ox 36.9 C 98 22 119/84 H 100 02/21/20 06:30 02/21/20 06:30 02/21/20 06:30 02/21/20 06:30 02/21/20 06:30 Contraction Frequency (min/apart): 2-5 Contraction Intensity: positive: Moderate Uterine Resting Tone: positive: Soft - Monitoring Heart Rate Baseline: 130 Strip Review: positive: Category I - Presentation Presentation: positive: Vertex - Vaginal Exam Membranes: positive: Membranes intact Dilation (in cm): 3 Effacement (%): 100 Station: positive: 0 Cervical Position: positive: Midposition Plan for Labor - Plan For Labor I expect patient to be DC'd or transferred within 96 hours.: Yes
[2020-02-21] MEDS: LACTATED RINGERS 1,000 ML IV SCH ×2 (08:05→13:57)
[2020-02-21 08:14] LABS: BASOPHILS % (AUTO) 0.3 %; EOSINOPHILS % (AUTO) 0.2 %; HGB - HEMOGLOBIN 14.4 g/dL (12.0-16.0); LYMPHOCYTES # (AUTO) 1.8 10^3/uL (1.5-3.5); LYMPHOCYTES % (AUTO) 12.1 %; MEAN CORPUSCULAR HEMOGLOBIN 32.4 pg (27.0-31.0); MEAN CORPUSCULAR HGB CONC 34.8 g/dL (32.0-36.0); MEAN PLATELET VOLUME 10.4 fL (7.9-10.8); MONOCYTES # (AUTO) 0.8 10^3/uL (0.0-1.0); MONOCYTES % (AUTO) 5.5 %; NEUTROPHILS # (AUTO) 11.7 10^3/uL (1.5-6.6); NEUTROPHILS % (AUTO) 80.1 %; PLT - PLATELET COUNT 195 10^3/uL (130-450); RED BLOOD COUNT 4.45 10^6/uL (4.20-5.40); RED CELL DISTRIBUTION WIDTH 12.4 % (12.0-15.0); WHITE BLOOD COUNT 14.6 x10^3/uL (4.8-10.8)
[2020-02-21] MEDS ORDERED: fentaNYL 100 MCG/2 ML VIAL ONE (08:33)
[2020-02-21] MEDS ORDERED: ROPIVACAINE 0.2% 200 MG/100 ML BAG EP ONE (08:33)
[2020-02-21] MEDS ORDERED: BUPIVACAINE 0.25% PF 10 ML VIAL ONE (08:33)
[2020-02-21] MEDS ORDERED: SODIUM CHLORIDE FLUSH 0.9% 10 ML SYRINGE IVP SCH (09:00)
[2020-02-21] MEDS ORDERED: diphenhydrAMINE INJ 50 MG/ML VIAL IVP PRN (09:06)
[2020-02-21] MEDS ORDERED: NALBUPHINE 10 MG/ML AMP IVP PRN (09:06)
[2020-02-21] MEDS ORDERED: ePHEDrine 50 MG/ML VIAL IVP PRN (09:06)
[2020-02-21] MEDS ORDERED: NALOXONE 0.4 MG/ML VIAL IVP PRN (09:06)
[2020-02-21] MEDS ORDERED: ROPIVACAINE 0.2% 200 MG/100 ML BAG EP PRN (09:06)
[2020-02-21] MEDS ORDERED: METOCLOPRAMIDE 10 MG/2 ML VIAL IVP PRN (09:06)
--- NOTE | 2020-02-21 09:09 | ANESTHESIA ---
Pre-Anesthesia VS, & Labs - Diagnosis active labor - Procedure labor epidural Vital Signs: Temp Pulse Resp BP Pulse Ox 36.4 C L 78 17 123/77 100 02/21/20 08:50 02/21/20 08:50 02/21/20 08:50 02/21/20 08:50 02/21/20 06:30 Height: 5 ft 4 in Weight (kg): 64.86 kg Body Mass Index: 24.5 BMI Classification: Healthy weight - NPO >8 hours - Is Patient ?: Yes - Lab Results Current Lab Results: Laboratory Tests 02/21/20 07:40: Blood Type B POSITIVE, Antibody Screen NEGATIVE 02/21/20 07:40: WBC 14.6 H, RBC 4.45, Hgb 14.4, Hct 41.4, MCV 93.0, MCH 32.4 H, MCHC 34.8, RDW 12.4, Plt Count 195, MPV 10.4, Neut # (Auto) 11.7 H, Lymph # (Auto) 1.8, [place] # (Auto) 0.8, Eos # (Auto) 0.0, Baso # (Auto) 0.0, Absolute N ucleated RBC 0.00, Nucleated RBC % 0.0 Lab results reviewed: Yes Fish Bones: 02/21/20 07:40 Home Medications and Allergies Active Medications Acetaminophen (Tylenol) 650 mg PO Q6H [facility] Carboprost Tromethamine (Hemabate) 250 mcg IM Q15M PRN PRN Reason: Step 4: Hemorrhage protocol Stop: 02/26/20 07:42 Fentanyl (Fentanyl) 50 mcg IVP Q1H PRN PRN Reason: PAIN Lactated Ringer's (Lr) 1,000 mls @ 150 mls/hr IV .Q6H40M [facility] Last Admin: 02/21/20 08:05 Dose: 150 mls/hr Documented by: Oxytocin/Sodium Chloride (Pitocin/Sodium Chloride) 500 mls @ 999 mls/hr IV PRN PRN; Protocol PRN Reason: POST- HEMORR PREVENTION Stop: 02/26/20 07:42 Tranexamic Acid 1,000 mg/ (Sodium Chloride) 110 mls @ 660 mls/hr IV .ONCE PRN PRN Reason: EBL >1200mL and within 3hr Stop: 02/26/20 07:42 Lidocaine HCl (Xylocaine-Mpf 1% Vial) 30 ml ID .ONCE PRN PRN Reason: PERINEAL REPAIR Stop: 02/26/20 07:42 Methylergonovine Maleate (Methergine Inj) 0.2 mg IM .ONCE PRN PRN Reason: Step 2: Hemorrhage protocol Stop: 02/26/20 07:42 Misoprostol (Cytotec) 800 mcg BC .ONCE PRN PRN Reason: Step 3: Hemorrhage protocol Stop: 02/26/20 07:42 Ondansetron HCl (Zofran Inj) 4 mg IVP Q4H PRN PRN Reason: Nausea / Vomiting Last Admin: 02/21/20 08:16 Dose: 4 mg Documented by: Oxytocin (Pitocin) 10 unit IM .ONCE PRN PRN Reason: Step one: If no IV access Stop: 02/26/20 07:42 Sodium Chloride (Normal Saline Flush 0.9%) 10 ml IVP PRN PRN PRN Reason: NEEDED PER PROVIDER ORDERS Sodium Chloride (Normal Saline Flush 0.9%) 10 ml IVP 0100,0900,1700 REYNA Last Admin: 02/21/20 08:16 Dose: 10 ml Documented by: Doxylamine Succinate [Unisom] 25 mg PO TID 08/27/19 No122/Iron/Folic Acid [ Multi Tablet] 1 each PO DAILY PM 08/27/19 Pyridoxine HCl (Vitamin B6) [Vitamin B-6] 100 mg PO TID 08/27/19 Allergies/Adverse Reactions: Allergies Allergy/AdvReac Type Severity Reaction Status Date / Time No Known Drug Allergies Allergy Verified 07/16/19 14:29 Anes History & Medical History - Anesthetic History Anesthesia Complications: reports: No previous complications Family history of Anesthesia Complications: Denies Family history of Malignant Hyperthermia: Denies - Medical History Cardiovascular: reports: None Pulmonary: reports: None Gastrointestinal: reports: None Urinary: reports: None Neuro: reports: None Musculoskeletal: reports: None Endocrine/Autoimmune: reports: None Blood Disorders: reports: None Skin: reports: None Smoking Status: Never smoker - Surgical History General: Appendectomy - Obstetrical History Parity: 0 Exam General: Alert, Oriented x3, Cooperative, No acute distress Plan Anesthesia Type: Epidural Consent for Procedure(s) Verified and Reviewed: Yes Code Status: Attempt Resuscitation ASA classification: 2-Mild systemic disease Is this case an emergency?: No
[2020-02-21] MEDS: AMPICILLIN 1 GM in SODIUM CHLORIDE 0.9% MINIBAG 100 ML IV SCH ×2 (11:53→16:25)
--- NOTE | 2020-02-21 13:01 | PROVIDER PROGRESS NOTE ---
Labor Progress Note - Uterine Monitoring Uterine Monitoring Mode: positive: External toco Contraction Frequency (min/apart): 4-6 Contraction Intensity: positive: Moderate to strong Uterine Resting Tone: positive: Soft - Monitoring Monitor Mode: positive: External ultrasound Heart Rate Baseline: 125 Heart Rate Variability: positive: Moderate (6-25 bmp) Accelerations: positive: Absent Decelerations: positive: None (occasional early, two longer decels noted since admit with spontaneous recovery) Strip Review: positive: Category I - Vaginal Exam Dilation (in cm): 8 Effacement (%): 100 Station: 0 Cervical Position: Anterior - Labor Progress Note Labor Progress Note/Additional Text: S: Marga is resting comfortably in bed with epidural in place, which she reports is effective for pain management. FOB is on couch, resting while she is comfortable. After discussion, would like to elect for AROM now that antibiotics are in, with intention of augmenting labor. Risks/benefits discussed and understood. O: SVE: 8/100/0- AROM for clear/small amount Ampicillin: Dose 2 at 1200 Afebrile, no cough, sob/wob, chest pain Awaiting COVID swab results A: 29yo at 40.1wks gestation in active labor FHT Cat I Utx- adequate GBS positive- adequately treated Presumed positive COVID P: Anticipate Continuous monitoring Continue with COVID precautions, per protocol Comfort measures- epidural, position changes per nursing Ice chips/clears only
[2020-02-21] MEDS ORDERED: WITCH HAZEL/GLYCERIN 1 PAD TOP PRN (19:00)
[2020-02-21] MEDS ORDERED: HYDROCORTISONE 1% CREAM 28 GM TUBE PR PRN (19:00)
--- NOTE | 2020-02-21 19:09 | DELIVERY NOTE ---
Delivery Note - Labor Labor: positive: Spontaneous, Augmented by ARM - Infant Delivery Method Delivery Method: positive: Spontaneous vaginal delivery - Presentation Presentation: positive: Vertex, ТАТЬЯНА - right occiput anterior - Nuchal Cord Nuchal Cord: positive: Present (loose x1) - Anesthetic Anesthetic Type: - Amniotic Fluid Description Amniotic Fluid Description: positive: Clear - Laceration Laceration: positive: 3rd degree, Perineal, Periurethral (bilateral) - Suture Suture Type: positive: Vicryl Suture Size: positive: 2-0, 3-0 - Delivery Outcome Delivery Outcome: positive: Livebirth - Eldon Eldon: positive: Placed in direct skin contact with mother, Stimulated, [place] used : 7 : 9 - Cord Cord: positive: 3 vessels - Placenta Placenta: positive: Intact, Spontaneous - Estimated Blood Loss Estimated Blood Loss (in cc): 350 - Post Delivery Events Post Delivery Events: positive: No post delivery events, Other (MD consult required for laceration repair) - Delivery Comments (Free Text/Narrative) Delivery Comments (Free Text/Narrative): Note: Labor: This 29 year old, , @40.1wks gestation presented this morning in early active labor. Cervix was 3/100/0 and vertex. FHR pattern demonstrated 130 baseline in a Category I pattern. Normal labor course. Epidural placed upon maternal request. AROM occurred @ 1242 and amount and color of fluid were noted to be small and clear. She progressed to complete at 1550, and began pushing at 1557. : Normal of a 3130 gm male , named Chris, on 02/21/20 @ 1704. Nuchal present x1 and loose. The was placed on maternal abdomen, stimulated, dried and placed skin to skin. Apgars 7 at one minute and 9 at five minutes. The umbilical cord was allowed to stop pulsating at which time it was doubly clamped by CNM and cut by FOB. Pitocin administered via IV for hemostasis. Fundal massage and gentle cord traction applied for active third stage management. Cord blood was obtained. Placenta delivered spontaneously and intact at 1711. Three vessel cord. EBL 350mL. Fourth Stage: Uterine fundus firm and without excessive bleeding. The perineum, vagina, and cervix were inspected and found to have sustained bilateral periurethral tears which were repaired with a 3-0 vicryl under sterile conditions in standard fashion. She was also found to have sustained a 3rd degree perineal laceration, which Dr Miller was called in for. She utilized a 2-0 vicryl and 3-0 vicryl to repair her perineum under sterile conditions in standard fashion. Vaginal and rectal examination following repair was done. Tissues well approximated. initiated. Family bonding well. Both mother and baby are in stable condition.
[2020-02-21] MEDS: ACETAMINOPHEN 325 MG TABLET PO SCH (19:31)
[2020-02-21] MEDS: IBUPROFEN 600 MG TABLET PO SCH (19:32)
[2020-02-21] MEDS: DOCUSATE SODIUM 100 MG CAPSULE PO SCH (21:02)
[2020-02-22] MEDS: IBUPROFEN 600 MG TABLET PO SCH ×4 (02:59→21:54)
[2020-02-22] MEDS: ACETAMINOPHEN 325 MG TABLET PO SCH ×5 (02:59→21:58)
[2020-02-22] MEDS: DOCUSATE SODIUM 100 MG CAPSULE PO SCH ×2 (09:27→21:07)
[2020-02-22] MEDS: SERTRALINE 50 MG TABLET PO SCH (09:27)
--- NOTE | 2020-02-22 18:59 | PROVIDER PROGRESS NOTE ---
Subjective - Prog Note Date Prog Note Date: 02/22/20 Prog Note Time: 10:30 - Subjective Pt reports feeling: Improved Subjective: S: Marga is resting in bed with baby in arms. She reports her pain as well controlled with PO NSAIDS, although still too tender to sit directly on her bottom. O: Fundus firm Lochia rubra-light A: 29yo on day 1 Normal recovery Perineum healing well VSS P: Continue with routine care Evaluate for discharge home tomorrow Objective - Vital Signs/Intake & Output Vital Signs: Vital Signs x48h Temp Pulse Resp BP Pulse Ox 02/22/20 15:41 36.7 C 99 18 123/71 100 02/22/20 12:07 36.9 C 98 18 115/73 100 Intake & Output: Intake & Output 02/19/20 02/20/20 02/21/20 02/22/20 23:59 23:59 23:59 23:59 Intake Total 1080 Output Total 1575 Balance -495 - Lab Results Fish Bones: 02/21/20 07:40 Other Labs: Lab Results x24hrs 02/21/20 Range/Units 08:10 Coronavirus (PCR) NEGATIVE
[2020-02-23] MEDS: ACETAMINOPHEN 325 MG TABLET PO SCH ×3 (04:00→11:29)
[2020-02-23] MEDS: IBUPROFEN 600 MG TABLET PO SCH ×3 (04:00→11:29)
[2020-02-23] MEDS: DOCUSATE SODIUM 100 MG CAPSULE PO SCH (08:03)
[2020-02-23] MEDS: SERTRALINE 50 MG TABLET PO SCH (08:03)
[2020-02-23 08:08] VITALS: BP 124/72
--- NOTE | 2020-02-23 09:36 | PROVIDER PROGRESS NOTE ---
Subjective - Prog Note Date Prog Note Date: 02/23/20 Prog Note Time: 09:35 - Subjective Pt reports feeling: Improved Subjective: Final Progress Note S: Marga is resting in bed with baby in arms. She reports her pain as well controlled with PO NSAIDS. She reports her perineum more as discomfort, rather than pain at all. She has not yet had a bowel movement, but is taking the scheduled stool softeners. Some difficulty with , using nipple shield. Reports "maybe we have turned a corner!" with successful recent feed. O: Fundus firm Lochia rubra-light A: 29yo on day 2 Normal recovery Perineum healing well VSS P: Continue with routine care Evaluate for discharge home today Objective - Vital Signs/Intake & Output Vital Signs: Vital Signs x48h Temp Pulse Resp BP Pulse Ox 02/23/20 08:05 98.9 C H 99 18 124/72 02/23/20 05:30 36.8 C 82 20 110/70 100 Intake & Output: Intake & Output 02/20/20 02/21/20 02/22/20 02/23/20 23:59 23:59 23:59 23:59 Intake Total 1080 Output Total 1575 Balance -495 - Lab Results Fish Bones: 02/21/20 07:40 Other Labs: Lab Results x24hrs 02/21/20 Range/Units 08:10 Coronavirus (PCR) NEGATIVE
--- NOTE | 2020-02-23 09:42 | DISCHARGE SUMMARY ---
Discharge Summary Discharging Provider: Kenia Salazar Condition at Discharge: Good Discharge Disposition: 01 Home, Self Care - HPI History of Present Illness: Admit Date: 02/21/2020 Discharge Date 02/23/2020 Diagnosis on Admission: 1. A 29yo at 40.1 week intrauterine 2. Active Labor 3. GBS Positive 4. Suspected IUGR 5. Possible COVID positive Diagnosis on Discharge 1. A 29yo s/p spontaneous vaginal delivery on 02/21/2020 2. Normal recovery 3. Adequate GBS coverage 4. AGA 5. COVID swab- negative x2 Brief History: She is a patient at [facility] who presented on 02/21/2020 with complaints of contractions. The patient was found to contract every 2 to 5 minutes and her cervix was 3cm dilated, 100%effaced, and 0 station. She spontaneously delivered a viable male infant named Chris, weighing 3130g. Apgars were 7 and 9- and 1 and 5 minutes respectively. EBL 300mL. The patient has a 3nd degree laceration that was repaired with 2-0 vicryl and 3-0 vicryl in usual fashion under sterile conditions, with MD assistance She has been doing well in her course. She is ambulating and tolerating a regular diet. She is urinating without difficulty and her lochia is normal. Her pain is well controlled with oral medications. She will be discharged home today on day #2 without need for prescriptions. She intends to follow up with Midwifery at [facility] in 1, 3, and 6 weeks for routine visit. She has been given precautions to call if she has any worsening fevers, chills, abdominal pain, increased bleeding or foul smelling vaginal lochia. - ALLERGIES Allergies/Adverse Reactions: Allergies Allergy/AdvReac Type Severity Reaction Status Date / Time No Known Drug Allergies Allergy Verified 07/16/19 14:29 - MEDICATIONS Home Medications: Ambulatory Orders Medication Instructions Recorded Confirmed Ondansetron Odt [Zofran] 4 mg TL Q6H PRN #30 tablet 07/16/19 08/27/19 Doxylamine Succinate [Unisom] 25 mg PO TID 08/27/19 08/27/19 No122/Iron/Folic Acid 1 each PO DAILY PM 08/27/19 08/27/19 [ Multi Tablet] Pyridoxine HCl (Vitamin B6) 100 mg PO TID 08/27/19 08/27/19 [Vitamin B-6] - LABS Result Diagrams: 02/21/20 07:40
--- NOTE | 2020-02-23 09:43 | Discharge Plan ---
Discharge Plan Problem Reviewed?: Yes Disposition: Home, Self Care Condition: Good Diet: Regular Activity Restrictions: No Restrictions Shower Restrictions: No Driving Restrictions: No Weight Bearing: Full Weight Plan of Treatment: Follow up in 1, 3, and 6wks No Smoking: If you smoke, Please STOP! Call for help. Follow-up with: Kenia Salazar ARNP [Provider Admit Priv/Credential] -
--- NOTE | 2020-02-23 14:31 | Labor Flowsheet ---
Labor Flowsheet Datetime Report Generated by CPN: 02/23/2020 14:31 Datetime: 02/23/2020 08:07 VITAL SIGNS NBP Sys/Latoya/Mean (mmHg): 124 : 72 : 84 Pulse: 99 Datetime: 02/23/2020 05:40 SpO2 (%): 100 Datetime: 02/21/2020 19:30 Stage of : Recovery Respirations: 18 Temperature (C): 37.0 PAIN Pain Scale: 2 Pain Presence: Intermittent Pain Type: Cramping Pain Location: Abdomen; Perineum Datetime: 02/21/2020 17:34 Temperature Route: Oral Datetime: 02/21/2020 17:18 COMMUNICATION Communication: Provider at Bedside Communication Comments: mcsorely here for repair Datetime: 02/21/2020 17:10 LaborFlag: Labor Datetime: 02/21/2020 16:59 UTERINE ACTIVITY Monitor Mode: External Frequency (min): 2-3 Quality: Strong Duration (sec): 60 Pattern: Normal: <= 5 Contractions in 10 Minutes Resting Tone (Palpate): Relaxed Comments: 145, monitor reading 200s. FHT audiable at 110 with audible decel during pushing Datetime: 02/21/2020 16:45 FHR Baseline Rate : 135 Datetime: 02/21/2020 16:29 ASSESSMENT A Monitor Mode: Telemetry Variability: Moderate 6-25 bpm Accelerations: 15X15 Decelerations: Variable Category: Category II Oxygen Method: Room Air Datetime: 02/21/2020 16:16 I/O Interventions: [place] Discontinued Datetime: 02/21/2020 16:00 FHR Baseline Changes: No Baseline Change STAGE 2 Pushing: Urge to Push Pushing Position: Pushing with Contractions Pushing Progress: Descent with Pushing Datetime: 02/21/2020 15:50 VAGINAL EXAM Dilatation (cm): 10.0 Station: 2 Exam by: [email or web address] Datetime: 02/21/2020 15:00 Anesthesia Level Check: T10- Umbilicus Datetime: 02/21/2020 13:54 Patient Position/Activity: Right Tilt Patient Care Comments: peanut ball Datetime: 02/21/2020 12:42 Effacement (%): 100 Membrane Status: Ruptured Membranes Rupture Method: Artificial Amniotic Fluid Color: Clear Amniotic Fluid Amount: Moderate Vaginal Bleeding: Normal Show Cervix, Consistency: Soft Cervix, Position: Anterior Datetime: 02/21/2020 10:45 PATIENT CARE IV/Blood Work: IV Infusing per Order Datetime: 02/21/2020 10:30 Pain Coping: Talking Through Contractions Datetime: 02/21/2020 09:45 Actions for Decelerations: Side to Side; IV Bolus; Provider Notified Provider Reviewed Strip: Yes Datetime: 02/21/2020 09:00 Monitor Interventions for UA: Soso Adjusted Datetime: 02/21/2020 08:48 Epidural Procedure: Loading Dose Datetime: 02/21/2020 08:35 PROCEDURE TIME OUT Procedure Verify: Correct Patient Identity; Correct Side and Site are Marked; Accurate Procedure Co nsent Form; Agreement on Procedure to be Done; Correct Patient Position; Addressed Need to Administer Antibiotics or Fluids for Irrigation; Safety Precautions Based on Patient History or Medication Use Epidural Positioning: Sitting Datetime: 02/21/2020 08:30 ANESTHESIA Anesthesia Plans: Epidural Datetime: 02/21/2020 08:17 Antiemetics/Antacids: Zofran (mg) @ 4 Datetime: 02/21/2020 08:09 MEDICATIONS Antibiotics: Ampicillin IV 2 Gm
== END 2020-02-23 14:30 | disposition home or self-care (01) | DRG 768 ==
LOC: WFO 06:12 → FBP 06:15 → WFO 07:41 → FBP 07:42
PROVIDERS: ADMIT Advanced Practice Midwife; ATTEND Advanced Practice Midwife
PROC: 10E0XZZ Delivery of Products of Conception, External Approach (ICD-10-PCS; principal; 2020-02-21)
PROC: 0DQR0ZZ Repair Anal Sphincter, Open Approach (ICD-10-PCS; 2020-02-21)
PROC: 10907ZC Drainage of Amniotic Fluid, Therapeutic from Products of Conception, Via Natural or Artificial Opening (ICD-10-PCS; 2020-02-21)
DX: O36.5930 Maternal care for other known or suspected poor fetal growth, third trimester, not applicable or unspecified (principal); Z37.0 Single live birth; O70.20 Third degree perineal laceration during delivery, unspecified; O99.824 Streptococcus B carrier state complicating childbirth; O69.81X0 Labor and delivery complicated by cord around neck, without compression, not applicable or unspecified; O92.70 Unspecified disorders of lactation; Z20.828 Contact with and (suspected) exposure to other viral communicable diseases; Z3A.40 40 weeks gestation of pregnancy; Z79.899 Other long term (current) drug therapy
CPT/HCPCS: 85025; 86850; 86900; 86901; 87635; 99213; A9270; J7120

== ENCOUNTER 2020-10-13 15:26 | Emergency (ER) | payer OTHER ==
[2020-10-13 15:56] LABS: BASOPHILS % (AUTO) 0.5 %; EOSINOPHILS # (AUTO) 0.1 10^3/uL (0.0-0.7); HCT - HEMATOCRIT 38.9 % (37.0-47.0); HGB - HEMOGLOBIN 13.3 g/dL (12.0-16.0); LYMPHOCYTES # (AUTO) 1.8 10^3/uL (1.5-3.5); LYMPHOCYTES % (AUTO) 23.5 %; MEAN CORPUSCULAR HEMOGLOBIN 30.8 pg (27.0-31.0); MEAN CORPUSCULAR HGB CONC 34.2 g/dL (32.0-36.0); MEAN PLATELET VOLUME 9.1 fL (7.9-10.8); MONOCYTES # (AUTO) 0.6 10^3/uL (0.0-1.0); MONOCYTES % (AUTO) 8.1 %; NEUTROPHILS # (AUTO) 5.1 10^3/uL (1.5-6.6); NEUTROPHILS % (AUTO) 66.5 %; PLT - PLATELET COUNT 252 10^3/uL (130-450); RED BLOOD COUNT 4.32 10^6/uL (4.20-5.40); WHITE BLOOD COUNT 7.7 x10^3/uL (4.8-10.8)
[2020-10-13 16:06] LABS: ALBUMIN 4.3 g/dL (3.2-5.5); ALBUMIN/GLOBULIN RATIO 1.5 (1.0-2.2); CALCIUM 8.8 mg/dL (8.5-10.3); CREATININE 0.7 mg/dL (0.4-1.0); POTASSIUM 3.5 mmol/L (3.5-5.0); TOTAL PROTEIN 7.1 g/dL (6.7-8.2)
--- NOTE | 2020-10-13 16:13 | ED Physician Documentation ---
PD HPI CHEST PAIN - Stated complaint Stated Complaint: BRAN CP - Chief complaint Chief Complaint: Cardiac - History obtained from History obtained from: Patient - Additional information Additional information: 3 days of intermittent sharp left anterior nonradiating chest pain associated with deep breathing but no shortness of breath, pedal edema, calf pain, recent travel, history of DVT or PE. She does have a strong family history of heart disease on the mom's side. Review of Systems Ten Systems: 10 systems reviewed and negative Constitutional: reports: Reviewed and negative Ears: reports: Reviewed and negative Nose: reports: Reviewed and negative Throat: reports: Reviewed and negative Cardiac: reports: Reviewed and negative PD PAST MEDICAL HISTORY - Past Medical History Cardiovascular: None Respiratory: None Neuro: None Endocrine/Autoimmune: None GI: None CASE MANAGEMENT RN: None : None HEENT: None Psych: Depression, Anxiety Musculoskeletal: None Derm: None - Past Surgical History Past Surgical History: Yes General: Appendectomy - Present Medications Home Medications: Ambulatory Orders Medication Instructions Recorded Confirmed Ondansetron Odt [Zofran] 4 mg TL Q6H PRN #30 tablet 07/16/19 08/27/19 Doxylamine Succinate [Unisom] 25 mg PO TID 08/27/19 08/27/19 No122/Iron/Folic Acid 1 each PO DAILY PM 08/27/19 08/27/19 [ Multi Tablet] Pyridoxine HCl (Vitamin B6) 100 mg PO TID 08/27/19 08/27/19 [Vitamin B-6] - Allergies Allergies/Adverse Reactions: Allergies Allergy/AdvReac Type Severity Reaction Status Date / Time No Known Drug Allergies Allergy Verified 10/13/20 15:29 - Social History Does the pt smoke?: No Smoking Status: Never smoker Does the pt drink ETOH?: No Does the pt have substance abuse?: No - Immunizations Immunizations are current?: Yes - POLST Patient has POLST: No PD ED PE NORMAL - Vitals Vital signs reviewed: Yes - General General: Alert and oriented X 3, No acute distress - HEENT HEENT: PERRL, EOMI - Neck Neck: Supple, no meningeal sign, No bony TTP - Cardiac Cardiac: RRR, No murmur - Respiratory Respiratory: No respiratory distress, Clear bilaterally - Abdomen Abdomen: Normal bowel sounds, Soft, Non tender - Back Back: No CVA TTP, No spinal TTP - Derm Derm: Normal color, Warm and dry - Extremities Extremities: No edema, No calf tenderness / cord - Neuro Neuro: Alert and oriented X 3, Normal speech Results - Vitals Vitals: Vital Signs - 24 hr 10/13/20 15:29 Temperature 36.5 C Heart Rate 92 Respiratory 16 Rate Blood Pressure 115/72 O2 Saturation 99 Oxygen O2 Source Room air - EKG (time done) 1527 Rate: Rate (enter#) (92) Rhythm: NSR [place]: Normal Intervals: Normal CA QRS: Normal Ischemia: Normal ST segments Computer interpretation: Agree with computer - Labs Labs: Laboratory Tests 10/13/20 10/13/20 10/13/20 15:46 15:46 15:46 WBC 7.7 RBC 4.32 Hgb 13.3 Hct 38.9 MCV 90.0 MCH 30.8 MCHC 34.2 RDW 12.0 Plt Count 252 MPV 9.1 Neut # (Auto) 5.1 Lymph # (Auto) 1.8 [place] # (Auto) 0.6 Eos # (Auto) 0.1 Baso # (Auto) 0.0 Absolute Nucleated RBC 0.00 Nucleated RBC % 0.0 Sodium 138 Potassium 3.5 Chloride 101 Carbon Dioxide 28 Anion Gap 9.0 BUN 13 Creatinine 0.7 Estimated GFR (MDRD) 100 Glucose 108 H Calcium 8.8 Total Bilirubin 1.0 AST 13 ALT 13 Alkaline Phosphatase 68 Troponin I High Sens < 2.3 L Total Protein 7.1 Albumin 4.3 Globulin 2.8 Albumin/Globulin Ratio 1.5 Lipase 31 - Rads (name of study) 1v cxr Radiology: EMP read contemporaneously PD MEDICAL DECISION MAKING - ED course ED course: PERC neg HEART 1 Departure - Departure Disposition: 01 Home, Self Care Clinical Impression: Pleurisy Condition: Good Record reviewed to determine appropriate education?: Yes Instructions: ED Chest Pain Atypical Unkn Cause Comments: All results including chest x-ray, labs, EKG are normal today. Follow-up with your primary care physician. Return if worsening. Ibuprofen per package instructions as needed for the pain.
--- NOTE | 2020-10-13 17:26 | XRAY Report ---
PROCEDURE: Chest 1 View X-Ray INDICATIONS: Chest pain TECHNIQUE: One view of the chest was acquired. COMPARISON: None. FINDINGS: Surgical changes and devices: None. Lungs and pleura: No pleural effusions or pneumothorax. Lungs are clear. Mediastinum: Mediastinal contours appear normal. Heart size is normal. Bones and chest wall: No suspicious bony lesions. Overlying soft tissues appear unremarkable. IMPRESSION: No acute cardiopulmonary disease. Reviewed by: Valentina Sawyer MD on 10/13/2020 5:25 PM PDT Approved by: Valentina Sawyer MD on 10/13/2020 5:25 PM PDT Station ID: [id number]
[2020-10-13 21:26] VITALS: BP 109/83
== END 2020-10-13 17:57 | disposition home or self-care (01) ==
LOC: ED 15:26
DX: R09.1 Pleurisy (principal); Z82.49 Family history of ischemic heart disease and other diseases of the circulatory system
CPT/HCPCS: 36415; 80053; 83690; 84484; 85025; 93005; 99283; 99284